=== PATIENT | female | born 1935 | race Caucasian/White ===

== ENCOUNTER → 2017-02-11 | Outpatient (CLI) | payer MEDICARE ==
[~2017-02-11] MED LIST: THYR15TA PO
[2017-02-11 10:49] LABS: BASOPHILS # (AUTO) 0.03 x10^3/uL (0-0.1); BASOPHILS % (AUTO) 0 % (0-1); EOSINOPHILS # (AUTO) 0.06 x10^3/uL (0-0.4); EOSINOPHILS % (AUTO) 1 % (1-7); LYMPHOCYTES # (AUTO) 2.55 x10^3/uL (1-3.4); LYMPHOCYTES % (AUTO) 32 % (22-44); MD NO; MEAN CORPUSCULAR HEMOGLOBIN 30.1 pg (27.0-34.8); MEAN CORPUSCULAR HGB CONC 33.6 g/dL (32.4-35.8); MEAN CORPUSCULAR VOLUME 89.6 fL (80-100); MONOCYTES # (AUTO) 0.51 x10^3/uL (0.2-0.8); MONOCYTES % (AUTO) 6 % (2-9); NEUTROPHILS # (AUTO) 4.78 x10^3/uL (1.8-6.8); NEUTROPHILS % (AUTO) 60 % (42-75); PLATELET COUNT 291 x10^3/uL (130-400); RED BLOOD COUNT 4.65 x10^6/uL (3.82-5.3)
[2017-02-11 10:53] LABS: MICROSCOPIC AUTO
[2017-02-11 10:57] LABS: CULTURE INDICATED? NO
[2017-02-11 11:00] LABS: ALBUMIN 3.5 g/dL (3.4-5.0); ANION GAP 5 mmol/L (5-15); CALCIUM 8.8 mg/dL (8.5-10.1); CHLORIDE 106 mmol/L (98-107)
[2017-02-11 11:03] LABS: ALANINE AMINOTRANSFERASE 23 U/L (12-78); ALKALINE PHOSPHATASE 78 U/L (45-117); BILIRUBIN,TOTAL 0.3 mg/dL (0.2-1.0); CREATININE 0.68 mg/dL (0.55-1.02); TOTAL PROTEIN 7.4 g/dL (6.4-8.2)
== END | disposition home or self-care (01) ==
LOC: STAR 09:44
PROVIDERS: ATTEND Orthopaedic Surgery
DX: Z01.818 Encounter for other preprocedural examination (principal); R94.31 Abnormal electrocardiogram [ECG] [EKG]; M16.11 Unilateral primary osteoarthritis, right hip
CPT/HCPCS: 36415; 80053; 81001; 85025; 87081; 93005

== ENCOUNTER 2017-02-23 08:41 | Inpatient (IN) | payer MEDICARE ==
[~2017-02-23] VITALS: Ht 160 cm; Wt 51.3 kg
[~2017-02-23 08:41] MED LIST changes: +EPINEPHRINE 1 MG/ML, 1ML ONE; +KETOROLAC 60 MG/2 ML ONE; +ROPIvacaine/PF 0.2%, 20 ML ONE; +SODIUM CHLORIDE 0.9% 100 ML ONE; +TRANEXAMIC ACID 100 MG/ML, 10ML ONE
[2017-02-23 09:01] VITALS: BP 172/83
[2017-02-23] MEDS ORDERED: LACTATED RINGERS 1,000 ML IV SCH (09:03)
[2017-02-23] MEDS ORDERED: GABA300C10 PO (09:32)
[2017-02-23] MEDS ORDERED: TRAM50TA2 PO (09:32)
[2017-02-23] MEDS ORDERED: PROPOFOL 50 ML ONE (11:44)
[2017-02-23] MEDS ORDERED: FENTANYL PF 100 MCG/2ML ONE (11:45)
[2017-02-23] MEDS ORDERED: MIDAZOLAM 1 MG/ML, 2ML ONE (11:45)
[2017-02-23] MEDS ORDERED: CEFAZOLIN 1,000 MG ONE (11:45)
[2017-02-23] MEDS ORDERED: ONDANSETRON 2MG/ML, 2ML ONE (11:45)
[2017-02-23] MEDS ORDERED: PROPOFOL 10 MG/ML, 20ML ONE (11:45)
[2017-02-23] MEDS ORDERED: DEXAMETHASONE 4 MG/ML, 1ML ONE (11:45)
[2017-02-23] MEDS ORDERED: PHENYLEPHRINE 10 MG/ML ONE (12:25)
[2017-02-23] MEDS: D5%-0.45% NACL 1,000 ML IV SCH (14:30)
[2017-02-23] MEDS ORDERED: BISACODYL 10 MG SUPP PR PRN (14:30)
[2017-02-23] MEDS ORDERED: HYDROmorphone 2MG TABLET PO PRN (14:30)
[2017-02-23] MEDS ORDERED: HYDROmorphone 1 MG/ML, 1ML IV PRN ×2 (14:30→15:30)
[2017-02-23] MEDS ORDERED: ALUMINUM/MAG/SIMETHICONE 30 ML UDC PO PRN (14:30)
[2017-02-23] MEDS ORDERED: LORazepam 1MG TABLET PO PRN (14:30)
[2017-02-23] MEDS ORDERED: ONDANSETRON 4 MG TABLET PO PRN (14:30)
[2017-02-23] MEDS ORDERED: PROMETHAZINE 25 MG/ML, 1ML IM PRN (14:30)
[2017-02-23] MEDS ORDERED: MAGNESIUM HYDROXIDE 8%, 30ML UDC PO PRN (14:30)
[2017-02-23] MEDS ORDERED: DIAZEPAM 5 MG TABLET PO PRN (14:30)
[2017-02-23] MEDS ORDERED: PROMETHAZINE 12.5 MG SUPP PR PRN (14:30)
[2017-02-23] MEDS ORDERED: DIPHENHYDRAMINE 50 MG CAPSULE PO PRN (14:30)
[2017-02-23] MEDS ORDERED: SENNA/DOCUSATE TABLET PO PRN (14:30)
[2017-02-23] MEDS ORDERED: ONDANSETRON 2MG/ML, 2ML IV PRN (14:30)
[2017-02-23] MEDS ORDERED: TRANEXAMIC ACID 1,000 MG in SODIUM CHLORIDE 0.9% 100 ML IVPB ONE (15:00)
[2017-02-23] MEDS ORDERED: LABETALOL 5MG/ML, 20ML IV PRN (15:30)
[2017-02-23] MEDS ORDERED: ACETAMINOPHEN 325 MG TABLET PO PRN (15:30)
[2017-02-23] MEDS ORDERED: ONDANSETRON 2MG/ML, 2ML IVPush PRN (15:30)
[2017-02-23] MEDS ORDERED: MEPERIDINE/PF 25MG/0.5ML IVPush PRN (15:30)
[2017-02-23] MEDS ORDERED: FENTANYL PF 100 MCG/2ML IV PRN (15:30)
[2017-02-23] MEDS ORDERED: hydrALAzine 20 MG/ML, 1ML IV PRN (15:30)
[2017-02-23] MEDS ORDERED: PROMETHAZINE 25 MG/ML, 1ML IV PRN (15:30)
[2017-02-23] MEDS ORDERED: OXYcodone 5 MG/5 ML ORAL.SOL UDC PO PRN (15:30)
[2017-02-23] MEDS ORDERED: DIAZEPAM 5 MG/ML, 2ML IVPush PRN (15:30)
[2017-02-23] MEDS ORDERED: MIDAZOLAM 1 MG/ML, 2ML IV PRN (15:30)
[2017-02-23] MEDS ORDERED: ALBUTEROL/IPRATROPIUM 2.5MG/0.5MG, 3 ML NPPB PRN (15:30)
[2017-02-23] MEDS: ACETAMINOPHEN 650 MG/20.3 ML UDC PO SCH ×2 (16:56→21:13)
[2017-02-23] MEDS: ASPIRIN 81 MG TABLET EC PO SCH (18:06)
[2017-02-23 19:38] VITALS: BP 125/66
[2017-02-23] MEDS: CEFAZOLIN PMX 1GM/50ML 50 ML IVPB SCH (21:12)
[2017-02-23] MEDS: HYDROcodone/APAP 5/325 TABLET PO PRN (21:12)
[2017-02-23] MEDS: DOCUSATE 100 MG CAPSULE PO SCH (21:13)
[2017-02-23 23:52] VITALS: BP 108/55
[2017-02-24] MEDS: HYDROcodone/APAP 5/325 TABLET PO PRN ×3 (00:53→08:47)
[2017-02-24] MEDS: D5%-0.45% NACL 1,000 ML IV SCH (02:16)
[2017-02-24] MEDS: ACETAMINOPHEN 650 MG/20.3 ML UDC PO SCH ×2 (02:27→08:30)
[2017-02-24] MEDS: CEFAZOLIN PMX 1GM/50ML 50 ML IVPB SCH (04:53)
[2017-02-24 05:08] VITALS: BP 126/68
[2017-02-24] MEDS ORDERED: DEXAMETHASONE 4 MG/ML, 1ML IVPush SCH (06:00)
[2017-02-24] MEDS ORDERED: THYROID 30 MG TABLET PO SCH ×5 (06:00)
[2017-02-24] MEDS: ASPIRIN 81 MG TABLET EC PO SCH (06:17)
[2017-02-24 07:10] VITALS: BP 109/58
[2017-02-24] MEDS: DOCUSATE 100 MG CAPSULE PO SCH (08:45)
[2017-02-24] MEDS ORDERED: TAMSULOSIN 0.4 MG CAP.ER.24H PO SCH (09:00)
[2017-02-24] MEDS ORDERED: HYDR-3240 PO (12:21)
[2017-02-24] MEDS ORDERED: KETOROLAC 30 MG/1 ML IV SCH (16:00)
== END 2017-02-24 12:39 | disposition home or self-care (01) | DRG 470 ==
LOC: ORIP 08:41 → 4NOR 15:57 → DCLOUNGE 02-24 12:16
PROVIDERS: ADMIT Orthopaedic Surgery; ATTEND Orthopaedic Surgery
PROC: 0SR906Z Replacement of Right Hip Joint with Oxidized Zirconium on Polyethylene Synthetic Substitute, Open Approach (ICD-10-PCS; principal; 2017-02-23 12:00)
DX: M16.11 Unilateral primary osteoarthritis, right hip (principal); E03.9 Hypothyroidism, unspecified; E78.5 Hyperlipidemia, unspecified; K21.9 Gastro-esophageal reflux disease without esophagitis
CPT/HCPCS: 36415; 85018; 86850; 86900; C1713; J0171; J0690; J1100; J1885; J2250; J2405; J2704; J2795; J3010; C1776; J2370; J7120